=== PATIENT | male | born 1950 | race Caucasian/White ===

== ENCOUNTER 2024-07-30 23:52 | Inpatient (IN) | payer MEDICARE, BC, SELFPAY ==
[2024-07-30 14:51] VITALS: BP 130/71
[2024-07-30 15:26] LABS: % Basophils 0.2 % (0-2); % Eosinophils 1.8 % (0-6); % Immature Granulocytes 0.3 % (0-0.5); % Lymphocytes 18.6 % (20.5-51.1); % Monocytes 6.1 % (1.7-9.3); Absolute Eosinophils 0.2 10^3/uL (0-0.7); Absolute Lymphocytes 2.2 10^3/uL (1.2-3.4); Absolute Monocytes 0.7 10^3/uL (0.1-0.6); Absolute Neutrophils 8.7 10^3/uL (1.4-6.5); Hematocrit 43.8 % (39.0-52.0); Hemoglobin 14.9 g/dL (13.0-18.0); Mean Corpuscular Hgb 30.9 pg (27.0-31.0); Mean Corpuscular Volume 90.9 fL (80.0-94.0); Mean Platelet Volume 10.6 fL (7.4-10.4); Nucleated Red Blood Cells % 0 % (-); Platelet Count 174 10^3/uL (130-400); Red Blood Cell Count 4.82 10^6/uL (4.70-6.10); Red Cell Dist. Width 13.4 % (11.5-14.5); White Blood Cell Count 11.9 10^3/uL (4.8-10.8)
[2024-07-30 15:36] LABS: ALT (SGPT) 40 U/L (0-50); AST (SGOT) 25 U/L (17-59); Albumin 4.3 g/dl (3.5-5.0); Alkaline Phosphatase 123 U/L (38-126); Blood Urea Nitrogen 14 mg/dl (9-20); Calcium 9.2 mg/dl (8.4-10.2); Carbon Dioxide 22 mmol/L (22-30); Chloride 108 mmol/L (98-107); Glucose 118 mg/dl (70-99); Lipase 48 U/L (23-300); Potassium 4.1 mmol/L (3.5-5.1); Sodium 138 mmol/L (135-145); Total Bilirubin 1.2 mg/dl (0.2-1.3); Total Protein 7.5 g/dl (6.3-8.2); eGFR > 60.00
[2024-07-30 19:52] VITALS: BP 143/76
[2024-07-30 19:53] VITALS: BMI 39.6
--- NOTE | 2024-07-30 20:12 | ED.GENMED ---
History of Present Illness
General
Chief Complaint: Abdominal Pain
Source: patient
Exam Limitations: none
Time Seen by Provider: 07/30/24 19:53
Nursing documentation reviewed up to this point in time: agreed with
History of Present Illness
History of Present Illness:
73-year-old male recurrent diverticulitis treated medically never required surgery states he has appendix out when he was a child, recently started on metformin 2 days of lower abdominal pain with some bloating feeling needs to pass gas, no fever no
vomiting
Past History
Past History
ED Past Medical History: Asthma, CAD, Hypercholesterolemia, [place] and Other (Diverticulitis, Achilles tendinitis after ciprofloxacin, obstructive sleep apnea, gout, osteoarthritis)
ED Past Surgical History: Appendectomy and Orthopedic
Social History
Tobacco: Former smoker
Alcohol: Occasional
Drug: None
Personal:
Living: with family
Employment: Retired
Family History
Family History: Other
Review of Systems
Review of Systems
All Other Systems: Not applicable
Constitutional: Denies fever
Cardiac: Reports no symptoms
ABD/GI: Reports abdominal pain, nausea and pain; Denies bloody stools
Phy Exam
Physical Exam
Physical Exam:
Physical Exam
General: 73 male looks unwell
Neck: No jaundice
Heart: s1/s2 regular rate and rhythm, no murmur. equal radial pulses.
Lungs: no acute respiratory distress. clear bilaterally
Abdomen: Tender left greater than right lower
Neuro: alert and oriented. no focal neurological deficits
Skin: no rash
Psychiatric: well kept. interactive and cooperative
Extremities: no edema.
Course
Orders/Labs/Results
Orders:
Orders
07/30/24 15:00
Comprehensive Metabolic Panel Urgent
Lipase Urgent
07/30/24 15:01
Complete Blood Count/With Diff Urgent
07/30/24 19:59
CT Abd/pelvis W Iv Cont Urgent
Comment:
Reason For Exam: pain h/o tics
07/30/24 22:17
IV Insert/Care/Rem.- Treatment PRN
0.9% Sodium Chloride 1000 ml [Nss] 1,000 ml IV BOLUS
HYDROmorphone [Dilaudid] 1 mg IV NOW STA
Piperacillin/Tazo 4.5 Gram [Zosyn] 4.5 gram in 100 ml IV NOW
Abnormal Lab Results
07/30/24 07/30/24
15:00 15:01
WBC 11.9 H 10^3/uL
(4.8-10.8)
MPV 10.6 H fL
(7.4-10.4)
Absolute Neuts (auto) 8.7 H 10^3/uL
(1.4-6.5)
Absolute Monos (auto) 0.7 H 10^3/uL
(0.1-0.6)
Lymphocytes % 18.6 L %
(20.5-51.1)
Chloride 108 H mmol/L
(98-107)
Glucose 118 H mg/dl
(70-99)
07/30/24 15:01
07/30/24 15:00
Vital Signs
Initial and Last Documented VS:
Initial Vital Signs
Temp Pulse Resp BP Pulse Ox
98.5 F 71 16 130/71 97
07/30/24 14:51 07/30/24 14:51 07/30/24 14:51 07/30/24 14:51 07/30/24 14:51
Last Documented Vital Signs
Temp Pulse Resp BP Pulse Ox
98.0 F 75 15 125/67 94
07/30/24 20:00 07/30/24 22:15 07/30/24 22:15 07/30/24 21:00 07/30/24 21:30
MDM/Problems Addressed
Differential Diagnosis Includes:
Diverticulitis appendicitis UTI
MDM/Problems Addressed:
Abdominal pain
Chronic conditions affecting care:
Diverticulitis
Acute Exacerbation and/or Progression of Chronic Illness:
Diverticulitis
*Radiology
Radiology exam reviewed: radiology read reviewed
*Pulse Oximetry
SaO2: 97
Oxygen Mode of Delivery: Room air
Patient hypoxic: no
*Cardiovascular Tech Interpretation
Rate: Cardiovascular Tech- N/A
*Critical Care Note
Total Time (30-74mins, 75-104mins- exclusive of procedures): Not Applicable
Data Reviewed
Review of Other/Old Records Reveals: Radiology Studies
Source: patient
Update Note
Update Note:
Update labs noted CT noted patient still uncomfortable fairly severe earlier, he is diabetic allergies noted, will start IV antibiotics analgesics fluids low threshold to admit
ED Attending Note
-
Portions of this chart may have been created with voice recognition software.� Occasional wrong word or��sound alike� substitutions may have occurred due to the inherent limitations of voice recognition software.
Discharge Plan
Departure
Prescriptions:
No Action
aspirin 81 MG tablet,delayed release (DR/EC)
81 mg PO DAILY
albuterol sulfate 1 PUFF HFA aerosol inhaler
2 puff inhalation R Q4HPRN PRN (Reason: shortness of breath)
losartan 100 mg Tablet
100 mg PO DAILY
ezetimibe [Zetia] 10 mg Tablet
10 mg PO DAILY
rosuvastatin [Crestor] 20 mg Tablet
20 mg PO DAILY
icosapent ethyl [Vascepa] 1 gram Capsule
2 g PO DAILY
allopurinol 100 MG tablet
100 mg PO DAILY
metoprolol succinate 25 MG tablet extended release 24 hr
25 mg PO DAILY
silodosin 8 MG capsule
8 mg PO DAILY
acetaminophen 325 mg Tablet
650 mg PO Q4HPRN PRN (Reason: mild pain/ fever>100.5F) Qty: 14 0RF
phenazopyridine 200 mg Tablet
200 mg PO Q8 Qty: 15 0RF
metronidazole 500 mg Tablet
500 mg PO Q8 Qty: 9 0RF
cefdinir 300 mg capsule
300 mg PO BID Qty: 20 0RF
Referrals:
NONE,* [Family Provider, Internal Medicine]
Interventions
Interventions:
*Risk Screen - Suicide Last Done: 07/30/24 14:52
*General Assessment Last Done: 07/30/24 19:55
*Neglect/Abuse Screening Last Done: 07/30/24 14:52
*ED- Fall Risk Assessment Last Done: 07/30/24 19:54
*ED COVID-19 Vaccine History Last Done: 07/30/24 19:54
IC-Xcnokw-Ehhhwmavfn Assessment Last Done: 07/30/24 19:56
Discharge Date and Time
Print Language: SINGAPOREAN
[2024-07-30 21:00] VITALS: BP 125/67
[2024-07-30] MEDS: DILAUDID 1 MG IV (22:39)
[2024-07-30] MEDS: NSS 1000 IV (22:39)
[2024-07-30] MEDS: ZOSYN 100 IV (22:40)
[2024-07-30 22:43] VITALS: BP 124/65
[2024-07-30 23:00] VITALS: BP 124/63
--- NOTE | 2024-07-30 23:08 | HPS.HSE ---
Family Physician
-
Family Physician: * NONE
Chief Complaint
-
Abdominal pain
History of Present Illness
Patient is a 73-year-old with past medical history of CAD status post stenting, hypertension, hyperlipidemia, BPH, recurrent diverticulitis who presents to the emergency department with worsening abdominal pain.
Patient has a history of recurrent diverticulitis and the last episode was 2 years ago. He reports that on Monday started having bilateral lower quadrant pain. This is reminiscent of his prior episodes of diverticulitis. He started with low
residue diet and clear liquids. However his pain worsened. He reports nausea but no vomiting. He denies any diarrhea. He has not had any fevers or chills. He denies any flank pain. He denies any urinary symptoms.
He has not been on any antibiotics recently. He stated that he was recently started on metronidazole for A1c of 6.5. Otherwise his Crestor was reduced to statin. His medications are otherwise unchanged.
Here in the emergency department he is afebrile, blood pressure is 125/67 with a pulse of 75. His white count is 12, hemoglobin and platelets were normal. Electrolytes BUN/creatinine were normal. CT of the abdomen pelvis showing severe acute
uncomplicated diverticulitis. Severe wall thickening and inflammatory change about the mid sigmoid colon. The bowel is without evidence of obstruction, perforation or abscess. Normal appendix.
Medical History
Past Medical History
Past Medical History: Reports Other
Additional Past Medical History:
Coronary Artery Disease s/p Stents
Essential Hypertension
Hyperlipidemia
BPH
Gout
Hx Diverticulitis
Past Surgical History: Reports Other
Additional Past Surgical History:
Left Total Knee Replacement
Bilateral Hernia Repair
Achilles Rupture Repair
Social History
Tobacco: Non-smoker
Alcohol: Occasional
Family History
Family History: Not pertinent
Allergies / Home Medications
Allergies reflects when Allergies were last updated in [employer].
Home Medications with original date entered in [employer]
Allergy/Medication List:
Allergies
Allergy/AdvReac Type Severity Reaction Status Date / Time
ciprofloxacin [From Cipro] Allergy tendonitis Verified 10/04/21 08:51
hayfever Allergy nasal Uncoded 10/04/21 08:51
symptoms
Home Medications
albuterol sulfate 90 mcg/actuation aerosol inhaler 2 puff inhalation R Q4HPRN PRN shortness of breath 09/24/18
aspirin 81 mg tablet,delayed release 81 mg PO DAILY Heart Disease/Condition 09/24/18
allopurinol 100 mg tablet 100 mg PO DAILY Gout 07/26/22
aspirin 325 mg tablet 650 mg PO TIDPRN PRN fever 07/26/22
ezetimibe 10 mg tablet (Zetia) 10 mg PO DAILY High Cholesterol 07/26/22
icosapent ethyl 1 gram capsule (Vascepa) 2 g PO DAILY High Cholesterol 07/26/22
losartan 100 mg tablet 100 mg PO DAILY Blood Pressure 07/26/22
metoprolol succinate 25 mg tablet,extended release 24 hr 25 mg PO DAILY Blood Pressure 07/26/22
rosuvastatin 20 mg tablet (Crestor) 20 mg PO DAILY High Cholesterol 07/26/22
silodosin 8 mg capsule 8 mg PO DAILY Urinary Issue 07/26/22
sulfamethoxazole 800 mg-trimethoprim 160 mg tablet (Bactrim DS) 1 tab PO .[id number] Infection 07/26/22
Review of Systems
-
A 12 point ROS was completed and negative except as noted: Yes
Respiratory: Denies Cough or Trouble Breathing
Cardiac: Denies Chest Pain or Palpitations
Abdomen/GI: Reports Abdominal Pain
: Reports No Symptoms
Musculoskeletal: Reports No Symptoms
Skin: Reports No Symptoms
Neurological: Reports No Symptoms
Endocrine: Reports No Symptoms
Hematologic/Lymphatic: Reports No Symptoms
Psych: Reports No Symptoms
Physical Exam
Vital Signs
Vital Signs
Temp Pulse Resp BP Pulse Ox
98.7 F 75 15 125/67 98
07/30/24 22:43 07/30/24 22:15 07/30/24 22:15 07/30/24 21:00 07/30/24 22:43
Physical Exam
General: Well Developed, Well Nourished, Comfortable and Conversant
HEENT: Moist mucous membranes and Atraumatic
Respiratory: Clear and Non Labored Respirations
Cardiac: S1/S2 and Regular Rhythm; No Murmur
GI: Soft, Non Distended and Tender
Musculoskeletal: No Clubbing, No Cyanosis and No Edema
Skin: Warm and Dry; No Rash
Neuro: Awake, Alert, Oriented and Nonfocal/grossly intact
Laboratory Results
-
07/30/24 15:01
07/30/24 15:00
Laboratory Results
Total Bilirubin 1.2 mg/dl (0.2-1.3) 07/30/24 15:00
AST 25 U/L (17-59) 07/30/24 15:00
ALT 40 U/L (0-50) 07/30/24 15:00
Alkaline Phosphatase 123 U/L (38-126) 07/30/24 15:00
Lipase 48 U/L (23-300) 07/30/24 15:00
Data Reviewed
-
CT Scan: Report Reviewed by me
Lab Data: Labs Reviewed by me
Old Records: Reviewed
Impression/Plan
-
IMPRESSION:
73-year-old male with past medical history of hypertension, hyperlipidemia, CAD status post stenting, recurrent diverticulitis and BPH who presents to the emergency department with bilateral lower quadrant abdominal pain and was found to have a
severe acute sigmoid diverticulitis similar to prior. No perforation abscess or fluid collection. This is his first episode of colitis in 2 years. He reports that he has had multiple episodes of about 6 or 7 times in the past. He has considered
surgery but states that he is not a fan of surgery.
PLAN:
Recurrent acute uncomplicated diverticulitis, severe -afebrile, hemodynamically stable
-Admit to MedSurg
-N.P. O, advance to clears in a.m.
-Pain control, IV fluids
-IV Zosyn for now
-Blood cultures if spike fever
-Will hold off on surgery consult given patient's sentiment
Continue his bp meds, statin and bph meds
Holding metformin, insulin sliding scale
DVT PPX - lovenox sq
Code status - Full Code
[2024-07-31 00:37] VITALS: BP 122/69; BMI 39.1
[2024-07-31] MEDS: LR 1000 IV ×3 (01:05→21:27)
[2024-07-31] MEDS: ZOSYN 50 IV ×4 (05:49→23:14)
[2024-07-31 07:25] VITALS: BP 116/60
[2024-07-31 07:26] LABS: Hematocrit 39.3 % (39.0-52.0); Hemoglobin 13.7 g/dL (13.0-18.0); Mean Corp Hgb Conc. 34.9 g/dL (33.0-37.0); Mean Corpuscular Hgb 31.8 pg (27.0-31.0); Mean Corpuscular Volume 91.2 fL (80.0-94.0); Mean Platelet Volume 10.4 fL (7.4-10.4); Platelet Count 153 10^3/uL (130-400); Red Blood Cell Count 4.31 10^6/uL (4.70-6.10); Red Cell Dist. Width 13.5 % (11.5-14.5); White Blood Cell Count 10.1 10^3/uL (4.8-10.8)
[2024-07-31 08:13] LABS: Blood Urea Nitrogen 11 mg/dl (9-20); Calcium 8.4 mg/dl (8.4-10.2); Carbon Dioxide 23 mmol/L (22-30); Chloride 107 mmol/L (98-107); Estimated Creatinine Clearance 105 ml/min; Glucose 110 mg/dl (70-99); Potassium 3.9 mmol/L (3.5-5.1); Sodium 137 mmol/L (135-145); eGFR > 60.00
[2024-07-31 08:41] LABS: Glucose - Point of Care 115 mg/dl (70-99)
[2024-07-31] MEDS: ZETIA 10 MG PO (09:06)
[2024-07-31] MEDS: ZYLOPRIM 100 MG PO (09:06)
[2024-07-31] MEDS: ASPIR LOW (ENTERIC COATED) 81 MG PO (09:06)
[2024-07-31] MEDS: COZAAR 100 MG PO (09:06)
[2024-07-31] MEDS: CRESTOR 10 MG PO (09:06)
[2024-07-31] MEDS: FLOMAX 0.4 MG PO (09:06)
[2024-07-31] MEDS: TOPROL XL 25 MG PO (09:06)
[2024-07-31] MEDS: MIRALAX 17 GRAMS PO (09:12)
[2024-07-31 11:59] LABS: Glucose - Point of Care 134 mg/dl (70-99)
--- NOTE | 2024-07-31 13:39 | W.PN.HOSP.TC ---
Today's Communication/Plan
-
see note
Assessment / Plan
Assessment / Plan
Recurrent acute uncomplicated diverticulitis, severe
-afebrile, hemodynamically stable
-Admit to MedSurg
-Patient started on clear liquid diet
-Pain control, IV fluids
-Maintain on empiric IV Zosyn for now
-Blood cultures if spike fever
- Discussed potential need of following up with colorectal surgeon and patient is willing to do this outpatient. No clear indication to have surgery involved so far.
Essential hypertension
- Continue losartan/Toprol-XL
BPH
- Maintain on Flomax
Hyperlipidemia
- Continue Crestor
DVT PPX - lovenox sq
Code status - Full Code
Anticipated Discharge: 24 - 48 hours
Subjective/Interval History
-
Date of Service: July 31, 2024
Continues to have some left abdominal discomfort
Afebrile
No bowel movement today
No nausea vomiting
Objective Data
-
Labs:
Laboratory Results
07/31/24
06:31
WBC 10.1
Hgb 13.7
Hct 39.3
Plt Count 153
Sodium 137
Potassium 3.9
Chloride 107
Carbon Dioxide 23
BUN 11
Creatinine 0.8
Glucose 110 H
Calcium 8.4
Vital Signs:
Vital Signs
Temp Pulse Resp BP Pulse Ox
98.2 F 68 18 116/60 93
07/31/24 07:25 07/31/24 09:06 07/31/24 07:25 07/31/24 09:06 07/31/24 09:20
I&O
07/30/24 07/31/24 08/01/24
06:59 06:59 06:59
Intake Total 1580 / 1580
Output Total 250 / 250
Balance 1330 / 1330
Review of Systems
-
Respiratory: Reports No Symptoms
Cardiac: Reports No Symptoms
Abdomen/GI: Reports Abdominal Pain and Constipated; Denies Nausea or Vomiting
Physical Exam
-
General: No Apparent Distress and Comfortable
HEENT: Negative Oxygen
Respiratory: Clear to Auscultation
Cardiac: Regular Rhythm, S1/S2 and Rub; Negative Murmur
GI: Soft, Nontender and Nondistended
Musculoskeletal: No Edema
Neuro: Awake, Alert, Oriented, No Motor Deficits and Nonfocal/Grossly Intact
Psych: Calm
[2024-07-31 15:15] VITALS: BP 124/64
--- NOTE | 2024-07-31 15:46 | CM ---
Met with patient to obtain information for assessment. Patient stated that he lives with his in a single, two story home with one step to enter. He described himself as independent with all of his ADLs, personal care, dressing and bathing. He
can cook, clean, do laundry and floorleader. He can drive and can get himself to his appointments and does his own shopping. He has a w/c, walker, cane, shower chair, and grab bars from various previous surgeries. He has not had VN services nor
has he had SNF in the past.
Patient has a prescription plan and uses, [facility] in [place] on [phone]
Patient's PCP is, not listed.
Plan: Case management will continue to follow and assist with discharge planning. Patient is hoping to be able to return home when cleared for discharge.
[2024-07-31 16:53] LABS: Glucose - Point of Care 114 mg/dl (70-99)
[2024-07-31] MEDS: LOVENOX 40 MG SC (17:40)
[2024-07-31 21:10] LABS: Glucose - Point of Care 105 mg/dl (70-99)
[2024-07-31 23:55] VITALS: BP 112/44
[2024-08-01] MEDS: LR 1000 IV (05:59)
[2024-08-01] MEDS: ZOSYN 50 IV ×3 (06:00→17:24)
[2024-08-01 06:49] LABS: Hematocrit 39.1 % (39.0-52.0); Hemoglobin 13.2 g/dL (13.0-18.0); Mean Corp Hgb Conc. 33.8 g/dL (33.0-37.0); Mean Corpuscular Hgb 31.1 pg (27.0-31.0); Mean Platelet Volume 10.4 fL (7.4-10.4); Platelet Count 147 10^3/uL (130-400); Red Blood Cell Count 4.25 10^6/uL (4.70-6.10); Red Cell Dist. Width 13.5 % (11.5-14.5); White Blood Cell Count 7.9 10^3/uL (4.8-10.8)
[2024-08-01 07:15] VITALS: BP 125/61
[2024-08-01 07:16] LABS: Blood Urea Nitrogen 9 mg/dl (9-20); Calcium 8.4 mg/dl (8.4-10.2); Carbon Dioxide 23 mmol/L (22-30); Chloride 110 mmol/L (98-107); Estimated Creatinine Clearance 93 ml/min; Glucose 95 mg/dl (70-99); Potassium 3.9 mmol/L (3.5-5.1); Sodium 140 mmol/L (135-145); eGFR > 60.00
[2024-08-01 08:49] LABS: Glucose - Point of Care 100 mg/dl (70-99)
[2024-08-01] MEDS: ZYLOPRIM 100 MG PO (08:55)
[2024-08-01] MEDS: TOPROL XL 25 MG PO (08:55)
[2024-08-01] MEDS: ZETIA 10 MG PO (08:55)
[2024-08-01] MEDS: ASPIR LOW (ENTERIC COATED) 81 MG PO (08:55)
[2024-08-01] MEDS: COZAAR 100 MG PO (08:55)
[2024-08-01] MEDS: FLOMAX 0.4 MG PO (08:55)
[2024-08-01] MEDS: CRESTOR 10 MG PO (08:55)
[2024-08-01] MEDS: MIRALAX 17 GRAMS PO (09:14)
[2024-08-01 11:47] VITALS: BMI 38.7
[2024-08-01 12:45] LABS: Glucose - Point of Care 127 mg/dl (70-99)
--- NOTE | 2024-08-01 14:15 | W.PN.HOSP.TC ---
Today's Communication/Plan
-
continue abx one more day
possible d/c tomorrow
Assessment / Plan
Assessment / Plan
Recurrent acute uncomplicated diverticulitis, severe
-afebrile, hemodynamically stable
-Admit to MedSurg
-Pain control, IV fluids
-Maintain on empiric IV Zosyn for now
-Blood cultures if spike fever
-Discussed potential need of following up with colorectal surgeon and patient is willing to do this outpatient. No clear indication to have surgery involved so far.
-Abdominal pain is better. Change diet to full liquid diet.
Essential hypertension
- Continue losartan/Toprol-XL
BPH
- Maintain on Flomax
Hyperlipidemia
- Continue Crestor
DVT PPX - lovenox sq
Code status - Full Code
Anticipated Discharge: Within 24 hours
Subjective/Interval History
-
Date of Service: August 01, 2024
Subjective feeling better
No abdominal pain/nausea/vomiting
Remains afebrile
Objective Data
-
Labs:
Laboratory Results
08/01/24
06:19
WBC 7.9
Hgb 13.2
Hct 39.1
Plt Count 147
Sodium 140
Potassium 3.9
Chloride 110 H
Carbon Dioxide 23
BUN 9
Creatinine 0.9
Glucose 95
Calcium 8.4
Vital Signs:
Vital Signs
Temp Pulse Resp BP Pulse Ox
98.2 F 63 18 125/61 97
08/01/24 07:15 08/01/24 08:55 08/01/24 07:15 08/01/24 08:55 08/01/24 09:10
I&O
07/31/24 08/01/24 08/02/24
06:59 06:59 06:59
Intake Total 1580 / 1580 1440 / 1440
Output Total 250 / 250 1650 / 1650
Balance 1330 / 1330 -210 / -210
Review of Systems
-
Respiratory: Reports No Symptoms
Cardiac: Reports No Symptoms
Abdomen/GI: Reports No Symptoms
Physical Exam
-
General: No Apparent Distress and Comfortable
HEENT: Negative Oxygen
Respiratory: Clear to Auscultation
Cardiac: Regular Rhythm, S1/S2 and Rub; Negative Murmur
GI: Soft, Nontender and Nondistended
Musculoskeletal: No Edema
Neuro: Awake, Alert, Oriented, No Motor Deficits and Nonfocal/Grossly Intact
Psych: Calm
[2024-08-01 15:22] VITALS: BP 131/64
[2024-08-01] MEDS: LOVENOX 40 MG SC (17:25)
[2024-08-01 21:07] LABS: Glucose - Point of Care 108 mg/dl (70-99)
[2024-08-01 23:01] VITALS: BP 137/73
[2024-08-02] MEDS: ZOSYN 50 IV ×2 (00:05→05:12)
[2024-08-02 07:15] LABS: Hematocrit 40.3 % (39.0-52.0); Hemoglobin 13.8 g/dL (13.0-18.0); Mean Corp Hgb Conc. 34.2 g/dL (33.0-37.0); Mean Corpuscular Hgb 31.2 pg (27.0-31.0); Mean Platelet Volume 10.6 fL (7.4-10.4); Platelet Count 167 10^3/uL (130-400); Red Blood Cell Count 4.43 10^6/uL (4.70-6.10); Red Cell Dist. Width 13.2 % (11.5-14.5); White Blood Cell Count 6.8 10^3/uL (4.8-10.8)
[2024-08-02 07:41] VITALS: BP 120/62
[2024-08-02 07:45] LABS: Blood Urea Nitrogen 9 mg/dl (9-20); Calcium 8.6 mg/dl (8.4-10.2); Carbon Dioxide 21 mmol/L (22-30); Chloride 109 mmol/L (98-107); Estimated Creatinine Clearance 93 ml/min; Glucose 85 mg/dl (70-99); Potassium 3.9 mmol/L (3.5-5.1); Sodium 140 mmol/L (135-145); eGFR > 60.00
[2024-08-02 08:20] LABS: Glucose - Point of Care 100 mg/dl (70-99)
[2024-08-02] MEDS: FLOMAX 0.4 MG PO (09:01)
[2024-08-02] MEDS: TOPROL XL 25 MG PO (09:02)
[2024-08-02] MEDS: ZYLOPRIM 100 MG PO (09:02)
[2024-08-02] MEDS: ASPIR LOW (ENTERIC COATED) 81 MG PO (09:02)
[2024-08-02] MEDS: CRESTOR 10 MG PO (09:02)
[2024-08-02] MEDS: COZAAR 100 MG PO (09:02)
[2024-08-02] MEDS: ZETIA 10 MG PO (09:02)
--- NOTE | 2024-08-02 11:55 | CM ---
Patient stable for discharge. No concerns. He ambulated out without transport and has a ride home. IMM signed on chart.
Plan: Case management will continue to follow and assist with discharge planning. Home
--- NOTE | 2024-08-02 14:55 | W.PN.HOSP.TC ---
Today's Communication/Plan
-
d.c home
Assessment / Plan
Assessment / Plan
Recurrent acute uncomplicated diverticulitis, severe
-afebrile, hemodynamically stable
-Admit to MedSurg
-Pain control, IV fluids
-Blood cultures if spike fever
-Discussed potential need of following up with colorectal surgeon and patient is willing to do this outpatient. No clear indication to have surgery involved so far.
-Discharging on augmentin for 10 days
Essential hypertension
- Continue losartan/Toprol-XL
BPH
- Maintain on Flomax
Hyperlipidemia
- Continue Crestor
DVT PPX - lovenox sq
Code status - Full Code
More than 30 minutes spent in discharge including
Final examination of the patient
Summarizing hospital stay
Instructions for continuing care to all relevant caregivers
Preparation of discharge records, prescriptions, and referral forms
Total time spent (in minutes): 39 mins
Anticipated Discharge: Today
Subjective/Interval History
-
Date of Service: August 02, 2024
No issues overnight
Objective Data
-
Labs:
Laboratory Results
08/02/24
06:35
WBC 6.8
Hgb 13.8
Hct 40.3
Plt Count 167
Sodium 140
Potassium 3.9
Chloride 109 H
Carbon Dioxide 21 L
BUN 9
Creatinine 0.9
Glucose 85
Calcium 8.6
Vital Signs:
Vital Signs
Temp Pulse Resp BP Pulse Ox
98.3 F 66 16 120/62 95
08/02/24 07:41 08/02/24 09:02 08/02/24 07:41 08/02/24 09:02 08/02/24 09:15
I&O
08/01/24 08/02/24 08/03/24
06:59 06:59 06:59
Intake Total 1440 / 1440 960 / 960
Output Total 1650 / 1650
Balance -210 / -210 960 / 960
Review of Systems
-
Respiratory: Reports No Symptoms
Cardiac: Reports No Symptoms
Abdomen/GI: Reports No Symptoms
Physical Exam
-
General: No Apparent Distress and Comfortable
HEENT: Negative Oxygen
Respiratory: Clear to Auscultation
Cardiac: Regular Rhythm, S1/S2 and Rub; Negative Murmur
GI: Soft, Nontender and Nondistended
Musculoskeletal: No Edema
Neuro: Awake, Alert, Oriented, No Motor Deficits and Nonfocal/Grossly Intact
Psych: Calm
--- NOTE | 2024-08-02 17:20 | W.DCSUMMARY ---
Discharge Summary
Discharge Data
Date of Admission: 07/30/24
Date of Discharge: 08/02/24
-
Pending Results: No
Hospital Course
Discharging Physician : Dr Wilian Palma
Disposition : To home
Primary care physician : Unknown
Principal Discharge diagnosis :
Severe sigmoid diverticulitis
Chronic Discharge diagnosis :
Essential hypertension
Benign prostatic hyperplasia
Hyperlipidemia
Hospital Course :
Patient is a 73-year-old male with admission past medical history came to ER with new onset of lower abdominal discomfort. Patient has history of recurrent diverticulitis with last episode 2 years back and felt the pain to be similar in the nature.
In ER a CT abdomen pelvis was done which showed increase stool burden with patient having significant sigmoid diverticulitis. Fortunately no associated microperforation/abscess formation. Patient was started on IV antibiotic therapy and was
maintained on liquid diet. After improvement of symptoms patient was slowly advanced to low residue diet. Patient antibiotic at discharge was transition to oral Augmentin for another 7 days to finish total 10 days of antibiotic therapy. Patient
to have expressed wish to follow-up with colorectal surgeon for possible evaluation of elective surgery for recurrent diverticulitis, contact number for [facility] colorectal surgeon office was provided.
Important imaging findings :
None
Procedure findings :
None
Discharge Plan
-
Patient Disposition: Home (Routine Discharge)
Discharge Diagnosis/Procedures: Acute sigmoid diverticulitis
Condition: Fair
Diet: Other diet
Additional Diets: Low residue diet
Activity: As tolerated
Driving Restrictions: As prior to admission
Bathing Restrictions: OK to Shower
Activity Restrictions/Additional Instructions:
Please call for an appointment with Dr Guerrero for evaluation of recurrent sigmoid diverticulitis
Referrals:
Rajesh Guerrero MD [Active, ColoRectal]
NONE,* [Family Provider, Internal Medicine]
Prescriptions:
New
amoxicillin-pot clavulanate 875-125 mg tablet
1 tab PO BID Qty: 20 0RF
Probiotic 10 billion cell capsule
10,000 mmu cells PO DAILY Qty: 14 0RF
Continued
aspirin 81 MG tablet,delayed release (DR/EC)
81 mg PO DAILY
albuterol sulfate 1 PUFF HFA aerosol inhaler
2 puff inhalation R Q4HPRN PRN (Reason: shortness of breath)
losartan 100 mg Tablet
100 mg PO DAILY
ezetimibe [Zetia] 10 mg Tablet
10 mg PO DAILY
rosuvastatin [Crestor] 20 mg Tablet
20 mg PO DAILY
icosapent ethyl [Vascepa] 1 gram Capsule
2 g PO DAILY
allopurinol 100 MG tablet
100 mg PO DAILY
metoprolol succinate 25 MG tablet extended release 24 hr
25 mg PO DAILY
silodosin 8 MG capsule
8 mg PO DAILY
acetaminophen 325 mg Tablet
650 mg PO Q4HPRN PRN (Reason: mild pain/ fever>100.5F) Qty: 14 0RF
phenazopyridine 200 mg Tablet
200 mg PO Q8 Qty: 15 0RF
metronidazole 500 mg Tablet
500 mg PO Q8 Qty: 9 0RF
cefdinir 300 mg capsule
300 mg PO BID Qty: 20 0RF
Discharge Orders:
Discharge Patient (As Directed); Ordered 08/02/24
Ordered By: Wilian Palma
Discharge Date and Time
Discharge Date/Time: 08/02/24 11:55
Print Language: JAPANESE
== END 2024-08-02 11:55 | disposition home or self-care (01) | DRG 392 ==
LOC: 4 EAST ACU 23:52
PROVIDERS: Emergency Medicine; ADMITTING PHYSICIAN Internal Medicine; ATTENDING PHYSICIAN Hospitalist; EMERGENCY PHYSICIAN Emergency Medicine
DX: K57.32 Diverticulitis of large intestine without perforation or abscess without bleeding (principal); I10 Essential (primary) hypertension; N40.0 Benign prostatic hyperplasia without lower urinary tract symptoms; E78.00 Pure hypercholesterolemia, unspecified; Z95.5 Presence of coronary angioplasty implant and graft; I25.10 Atherosclerotic heart disease of native coronary artery without angina pectoris; G47.33 Obstructive sleep apnea (adult) (pediatric); J45.909 Unspecified asthma, uncomplicated; M19.90 Unspecified osteoarthritis, unspecified site; Z87.891 Personal history of nicotine dependence; Z96.652 Presence of left artificial knee joint
CPT/HCPCS: 74177; 80048; 80053; 82962; 83690; 85025; 85027; 96361; 96374; 96375; 99284; Q9967